=== PATIENT | male | born 1965 | race Caucasian/White ===

== ENCOUNTER 2020-12-30 09:09 | Emergency (ER) | payer OTHER ==
[2020-12-30 09:22] VITALS: TEMP 98.1; BMI 26.6
[2020-12-30 10:32] VITALS: BP 102/77; PULSE 77
== END 2020-12-30 10:30 | disposition home or self-care (01) ==
LOC: FER 09:09
DX: S61.251A Open bite of left index finger without damage to nail, initial encounter (principal)
CPT/HCPCS: 99283-25

== ENCOUNTER 2022-06-19 13:10 | Emergency (ER) | payer OTHER ==
[2022-06-19 13:26] VITALS: BP 125/76; PULSE 86; RESP 18; TEMP 97.8; BMI 26.1
[2022-06-19] MEDS ORDERED: SODIUM PHOSPHATE/NA BIPHOS 133 ML ENEMA PR ONE (13:56)
[2022-06-19] MEDS ORDERED: ACETAMINOPHEN 325 MG TABLET (FP) PO ONE (13:57)
[2022-06-19] MEDS ORDERED: ACETAMINOPHEN 325 MG TABLET (FP) ONE (14:23)
[2022-06-19 14:42] LABS: INR 0.95 (0.83-1.09); PROTHROMBIN TIME (PATIENT) 10.9 SEC (9.7-13.0)
[2022-06-19 14:43] LABS: ALBUMIN 4.1 g/dl (3.4-5.0); CALCIUM 9.4 mg/dl (8.5-10); TOT PROT 6.4 g/dl (6.4-8.2)
[2022-06-19 16:35] LABS: HEMATOCRIT 44.2 % (35.4-49); HEMOGLOBIN 15.4 GM/dL (11.7-16.9); MCH 29.4 pg (25.7-33.7); MCHC 34.9 g/dl (32.0-35.9); MEAN CELL VOLUME 84.1 fl (80-96); MEAN PLT VOLUME 8.2 fl (7.5-11.1); PLATELET COUNT 176 10^3/uL (134-434); RBC 5.25 M/mm3 (4.00-5.60); RDW 13.5 % (11.9-15.9); WHITE BLOOD COUNT 10.3 K/mm3 (4.0-10.0)
[2022-06-19 16:56] LABS: ANISOCYTOSIS 1+; MACROCYTOSIS 0
== END 2022-06-19 17:14 | disposition home or self-care (01) ==
LOC: FER 13:10
DX: K59.00 Constipation, unspecified (principal); K80.20 Calculus of gallbladder without cholecystitis without obstruction; K57.90 Diverticulosis of intestine, part unspecified, without perforation or abscess without bleeding; K52.9 Noninfective gastroenteritis and colitis, unspecified; R10.9 Unspecified abdominal pain
CPT/HCPCS: 36415; 74177-TC; 80053; 83605; 83690; 85027; 85610; 85730; 86850; 86900; 86901; 99285-25; Q9967